=== PATIENT | female | born 2000 ===

== ENCOUNTER 2018-03-07 23:17 | Emergency (ER) | payer OTHER ==
[2018-03-08 00:09] VITALS: O2SAT 98
[2018-03-08] MEDS ORDERED: Lactated Ringer's 1,000 ML IV ONE ×2 (00:28→02:54)
[2018-03-08 00:31] LABS: HCG,QUALITATIVE URINE NEGATIVE (NEGATIVE)
[2018-03-08 00:37] LABS: SQUAMOUS EPITHIAL 2 /hpf (0-5); URINE BILIRUBIN NEGATIVE (NEGATIVE); URINE BLOOD 1+ (NEGATIVE); URINE CLARITY Clear (Clear); URINE COLOR Yellow (YELLOW); URINE GLUCOSE (UA) NORMAL (Normal); URINE LEUKOCYTE ESTERASE NEG Leu/uL (Negative); URINE PROTEIN NEGATIVE (NEGATIVE); URINE UROBILINOGEN NORMAL mg/dL (0.2-1.0)
[2018-03-08] MEDS ORDERED: Lactated Ringer's 1,000 ML ONE (00:48)
--- NOTE | 2018-03-08 01:18 | C.PDOC ---
History Of Present Illness Patient is a 18 y/o female who presents to the ED complaining of 3-4 episodes of nausea and vomiting associated with abdominal pain. Patient notes vomit is yellow in color and also experienced diarrhea 2 days ago that has since resolved. Patient reports to have seen PMD a few days ago and was told of "swollen glands"; patient was given Zpack and vitamin D tablets without relief. Denies any other medical problems, surgery history, allergies, or tobacco use. Time Seen by Provider: 03/08/18 00:14 Chief Complaint (Nursing): Abdominal Pain History Per: Patient History/Exam Limitations: no limitations Onset/Duration Of Symptoms: Days, Intermittent Episodes Current Symptoms Are (Timing): Still Present Location Of Pain/Discomfort: Diffuse Associated Symptoms: Nausea, Vomiting, Diarrhea Recent travel outside of the [place]: No Past Medical History Reviewed: Historical Data, Nursing Documentation, Vital Signs Vital Signs: Last Vital Signs Temp 98.4 F 03/08/18 03:32 Pulse 80 03/08/18 03:32 Resp 16 03/08/18 03:32 BP 102/67 03/08/18 03:32 Pulse Ox 98 03/08/18 03:47 - Medical History PMH: No Chronic Diseases Surgical History: No Surg Hx Family History: States: No Known Family Hx - Social History Hx Tobacco Use: No Hx Alcohol Use: Yes Hx Substance Use: No Review Of Systems Constitutional: Negative for: Fever, Chills Eyes: Negative for: Pain, Vision Change, Conjunctivae Inflammation ENT: Negative for: Ear Pain, Ear Discharge, Nose Pain, Nose Discharge Cardiovascular: Negative for: Chest Pain, Palpitations, Orthopnea, Paroxysmal Noc. Dyspnea Respiratory: Negative for: Cough, Shortness of Breath, Hemoptysis, SOB with Excertion, Pleuritic Pain Gastrointestinal: Positive for: Nausea, Vomiting, Abdominal Pain, Diarrhea. Negative for: Constipation, Melena, Hematochezia, Hematemesis Genitourinary: Negative for: Dysuria, Frequency, Incontinence Musculoskeletal: Negative for: Neck Pain, Shoulder Pain Skin: Negative for: Rash Physical Exam - Physical Exam Appears: Well, Non-toxic, No Acute Distress Skin: Normal Color, Warm, Dry Head: Atraumatic, Normacephalic Eye(s): bilateral: Normal Inspection, PERRL, EOMI Ear(s): Bilateral: Normal Nose: Normal, Flaring Oral Mucosa: Moist Tongue: Normal Appearing, Swelling Lips: Normal Appearing, Swelling, Contusion Teeth: Normal Dentition Gingiva: Normal Appearing Throat: Normal Neck: Normal, Normal ROM Lymphatic: Deferred Chest: Symmetrical Cardiovascular: Rhythm Regular, No Murmur Respiratory: Normal Breath Sounds, No Rales, No Rhonchi, No Wheezing Gastrointestinal/Abdominal: Soft, No Tenderness Back: Normal Inspection, CVA Tenderness Extremity: Normal ROM (x4) Extremity: Bilateral: Atraumatic Neurological/Psych: Oriented x3, Normal Speech, Normal Cognition ED Course And Treatment - Laboratory Results Result Diagrams: 03/08/18 01:24 03/08/18 01:24 O2 Sat by Pulse Oximetry: 98 Progress Note: Pepcid, zofran, IV fluids, and GI cocktail administered. On re- eval, patient is actively vomiting. Reglan and second dose of zofran administered. Patient notes new onset of diarrhea. Expresses want to go home and rest. Patient stable for discharge. Disposition Counseled Patient/Family Regarding: Diagnosis, Need For Followup - Disposition Disposition: HOME/ ROUTINE Disposition Time: 03:29 Condition: GOOD Additional Instructions: return if symptoms worsen Prescriptions: Famotidine [Pepcid] 40 mg PO DAILY 5 Days #5 tablet Forms: [employer] (Occitan) - Clinical Impression Clinical Impression: Abdominal pain, Diarrhea, Vomiting, Nausea - Scribe Statement The provider has reviewed the documentation as recorded by the Scribgriffin Bergman All medical record entries made by the Scribe were at my direction and personally dictated by me. I have reviewed the chart and agree that the record accurately reflects my personal performance of the history, physical exam, medical decision making, and the department course for this patient. I have also personally directed, reviewed, and agree with the discharge instructions and disposition.
[2018-03-08] MEDS ORDERED: Sodium Chloride 0.9% 1,000 ML IV ONE (01:19)
[2018-03-08] MEDS ORDERED: Aluminum Hydroxide/Magnesium Hydroxide Susp (30 mL) PO STA (01:19)
[2018-03-08] MEDS ORDERED: Aluminum Hydroxide/Magnesium Hydroxide Susp (30 mL) ONE (01:25)
[2018-03-08 01:27] LABS: BASO % 0.3 % (0.0-2.0); EOS # 0.1 K/uL (0.0-0.7); EOS % 1.1 % (0.0-4.0); HEMOGLOBIN 12.8 g/dL (11.0-16.0); LYMPH # 1.3 K/uL (1.0-4.3); MEAN CELL VOLUME 88.5 fL (81.0-99.0); MEAN CORPUSCULAR HEMOGLOBIN 30.5 pg (27.0-31.0); MEAN CORPUSCULAR HGB CONC 34.5 g/dL (33.0-37.0); MEAN PLATELET VOLUME 9.8 fL (7.2-11.7); MONO # 0.4 K/uL (0.0-0.8); NEUT # 8.2 K/uL (1.8-7.0); NEUT % 81.6 % (50.0-75.0); RBC 4.21 Mil/uL (3.80-5.20); RED CELL DISTRIBUTION WIDTH 13.3 % (11.5-14.5)
[2018-03-08] MEDS ORDERED: Sodium Chloride 0.9% 1,000 ML ONE (01:28)
[2018-03-08 01:40] LABS: ALB/GLOB RATIO 1.4 (1.0-2.1); ALBUMIN 4.7 g/dL (3.5-5.0); ALT/SGPT 26 U/L (9-52); AST/SGOT 22 U/L (14-36); BLOOD UREA NITROGEN 10 mg/dL (7-17); CALCIUM 9.5 mg/dl (8.6-10.4); GFR AFRICAN-AMERICAN > 60; GFR NON-AFRICAN AMERICAN > 60; LIPASE 40 U/L (23-300)
[2018-03-08 03:34] VITALS: BP 102/67; PULSE 80; RESP 16; TEMP 98.4
== END 2018-03-08 03:45 | disposition home or self-care (01) ==
LOC: C.ER 23:17
DX: R19.7 Diarrhea, unspecified (principal); R11.2 Nausea with vomiting, unspecified; R10.9 Unspecified abdominal pain
CPT/HCPCS: 80053; 81001; 83690; 84703; 85025; 96361; 96374; 96375; 96376; 99285; J2405; J2765; J7030; J7120